=== PATIENT | female | born 1965 | race Hispanic/Latino ===

== ENCOUNTER 2018-01-21 17:20 | Emergency (ER) | payer SELFPAY ==
[2018-01-21 17:51] LABS: #Basophils 0.1 thou/uL (0.0-0.2); #Eosinphils 0.2 thou/uL (0.0-0.7); #Lymphocytes 1.9 thou/uL (1.20-3.40); #Monocytes 0.4 thou/uL (0.11-0.59); #Neutrophils 2.5 thou/uL (1.40-6.50); %Basophils 1.6 % (0.0-1.0); %Eosinophils 3.1 % (0.0-10.0); %Lymphocytes 38.1 % (21.0-51.0); %Monocytes 7.6 % (0.0-10.0); %Neutrophils 49.6 % (42.0-75.0); Hemoglobin 13.7 g/dL (12.0-16.0); Mean Corpuscular HGB CONC 34.4 g/dL (32.0-36.0); Mean Platelet Volume 10.3 fL (7.4-10.4); Platelet Count 229 thou/uL (130-400); RBC Distribution Width 11.2 % (11.5-14.5); Red Blood Cell (RBC) Count 4.57 mill/uL (4.20-5.40); White Blood Cell (WBC) Count 4.9 thou/uL (4.8-10.8)
[2018-01-21 18:05] LABS: ALT (SGPT) 82 U/L (8-55); AST (SGOT) 71 U/L (5-34); Albumin 4.8 g/dL (3.5-5.0); Alkaline Phosphatase 92 U/L (40-150); Anion Gap 16 mmol/L (10-20); BUN (Urea Nitrogen) 16 mg/dL (7.0-18.7); Bilirubin, Total 1.4 mg/dL (0.2-1.2); Calc. Creatinine Clearance 0 mL/min (70-130); Calcium 10.3 mg/dL (7.8-10.44); Carbon Dioxide 23 mmol/L (22-29); Chloride 105 mmol/L (98-107); Estimated GFR-MDRD 82; Globulin 3.2 g/dL (2.4-3.5); Glucose 96 mg/dL (70-105); Potassium 3.8 mmol/L (3.5-5.1); Sodium 140 mmol/L (136-145)
--- NOTE | 2018-01-21 18:18 | RAD ---
PORTABLE CHEST: 01/21/18 HISTORY: Chest pain. Lung rodriguez are clear. Heart and mediastinum appear normal. IMPRESSION: No acute abnormality. POS: AGW
== END 2018-01-21 19:48 | disposition short-term general hospital (02) ==
LOC: MADERS 17:20
DX: R07.89 Other chest pain (principal); E78.5 Hyperlipidemia, unspecified; I10 Essential (primary) hypertension
CPT/HCPCS: 71045; 80053; 83880; 84484; 85025; 93005

== ENCOUNTER 2020-03-15 12:00 | Outpatient (CLI) | payer SELFPAY ==
--- NOTE | 2020-03-15 12:18 | RAD ---
EXAM: Two views chest PROVIDED CLINICAL HISTORY: Left chest pressure and shortness of breath COMPARISON: None FINDINGS: Cardiac silhouette and pulmonary vasculature are within normal limits. There is a masslike density se en at the medial left lung base which was also seen on prior exam. This likely represents a hiatal hernia, but a definite air-fluid level is not delineated. Follow-up CT scan versus upper GI suggested for confirmation. There is a lobulated contour of the right hemidiaphragm likely due to eventration anterior right hemidiaphragm. Similar finding was present on prior exam but to a lesser e xtent. Linear densities seen at the left lung base likely due to minimal atelectasis. The lungs are otherwise clear. Osseous structures have a normal appearance. IMPRESSION: 1. Masslike density medial left lung base stable from prior exam in 2018 and likely represents a smal l hiatal hernia. However, a follow-up CT scan versus upper GI would be helpful for confirmation of this finding. 2. No acute cardiopulmonary process..
== END 2020-03-15 12:01 | disposition home or self-care (01) ==
LOC: MADRAD 12:00
PROVIDERS: ATTEND Family Medicine
DX: R07.89 Other chest pain (principal); R06.02 Shortness of breath; R00.2 Palpitations; J98.4 Other disorders of lung
CPT/HCPCS: 71046; 93005; 93010

== ENCOUNTER 2023-03-16 10:54 | Emergency (ER) | payer SELFPAY ==
[2023-03-16 11:54] LABS: Anion Gap 18 mmol/L (10-20); BUN (Urea Nitrogen) 14 mg/dL (9.8-20.1); Calc. Creatinine Clearance 0 mL/min (70-130); Calcium 9.9 mg/dL (7.8-10.44); Carbon Dioxide 22 mmol/L (22-29); Chloride 105 mmol/L (98-107); Estimated GFR 96; Glucose 103 mg/dL (70-105); Potassium 4.8 mmol/L (3.5-5.1); Sodium 140 mmol/L (136-145)
[2023-03-16 11:58] LABS: Troponin I Less than 0.010 ng/mL (< 0.028)
[2023-03-16 12:01] LABS: #Basophils 0.1 thou/uL (0.0-0.2); #Eosinphils 0.1 thou/uL (0.0-0.7); #Lymphocytes 1.4 thou/uL (1.20-3.40); #Monocytes 0.3 thou/uL (0.11-0.59); #Neutrophils 2.2 thou/uL (1.40-6.50); %Basophils 1.6 % (0.0-1.0); %Eosinophils 3.6 % (0.0-10.0); %Lymphocytes 34.2 % (21.0-51.0); %Monocytes 6.4 % (0.0-10.0); %Neutrophils 54.1 % (42.0-75.0); Hematocrit 46.2 % (36.0-47.0); Hemoglobin 14.7 g/dL (12.0-16.0); Mean Corpuscular HGB CONC 31.8 g/dL (32.0-36.0); Mean Corpuscular Hemoglobin 28.9 pg (27.0-31.0); Mean Platelet Volume 12.2 fL (7.4-10.4); Platelet Count 219 10x3/uL (130-400); RBC Distribution Width 11.9 % (11.5-14.5); Red Blood Cell (RBC) Count 5.08 mill/uL (4.20-5.40); White Blood Cell (WBC) Count 4.1 10x3/uL (4.8-10.8)
[2023-03-16 12:12] LABS: Anisocytosis SLIGHT = 6-15 cells (100X) (0-5/hpf)
[2023-03-16 12:13] LABS: Platelet Adequacy Comment Appears Adequate
== END 2023-03-16 13:32 | disposition home or self-care (01) ==
LOC: MADERS 10:54
DX: R51.9 Headache, unspecified (principal); R20.2 Paresthesia of skin; E78.00 Pure hypercholesterolemia, unspecified; Z79.899 Other long term (current) drug therapy
CPT/HCPCS: 36416; 70450; 80048; 84443; 84484; 85025; 93005